=== PATIENT | female | born 1985 | race Two or more races ===

== ENCOUNTER 2021-11-13 13:29 | Emergency (ER) | payer OTHER ==
[~2021-11-13] VITALS: Ht 165.1 cm; Wt 100.0 kg
[2021-11-13 14:22] LABS: Basophils # (auto) 0.1 10 ^3/uL (0-0.2); Basophils % (auto) 0.7 % (0.0-2.0); Eosinophils # (auto) 0 10 ^3/uL (0-0.8); Eosinophils % (auto) 0.4 % (0.0-7.0); Hematocrit 43.6 % (36.0-46.0); Hemoglobin 14.4 g/dL (12.2-16.2); Lymphocytes # (auto) 1.1 10 ^3/uL (0.4-5.4); Mean Corpuscular Hemoglobin 29.6 pg (28.0-32.0); Mean Corpuscular Hgb Conc. 33.1 g/dL (32.0-36.0); Mean Corpuscular Volume 89.3 fL (80.0-100.0); Monocytes # (auto) 0.6 10 ^3/uL (0-1.3); Monocytes % (auto) 8.6 % (0.0-12.0); Neutrophils # (auto) 5.6 10 ^3/uL (1.6-8.6); Neutrophils % (auto) 75.3 % (37.0-80.0); Nucleated Red Blood Cells % 0.1 %; Red Blood Cells 4.88 10^6/uL (4.0-5.20); Red Cell Distribution Width 13.4 % (11.8-14.3); White Blood Cell 7.4 10^3/uL (4.4-10.8)
[2021-11-13 14:44] LABS: Potassium 4.1 mmol/L (3.5-5.1)
[2021-11-13 14:52] LABS: Albumin 3.8 g/dL (3.4-5.0); BUN/Creatinine Ratio 13.3; Bilirubin, Total 0.5 mg/dL (0.2-1.0); Total Protein 8.2 g/dL (6.4-8.2)
[2021-11-13] MEDS ORDERED: ONDANSETRON HCL 4 MG/2 ML VIAL IV ONE (15:30)
[2021-11-13 16:05] VITALS: BP 123/79
[2021-11-13] MEDS ORDERED: METH4PAK PO ×2 (16:21→19:42)
[2021-11-13] MEDS ORDERED: LEVO-28 PO ×2 (16:21→19:42)
[2021-11-13] MEDS ORDERED: KETOROLAC TROMETH 30 MG/ML 1ML VIAL IV ONE (16:30)
== END 2021-11-13 17:26 | disposition home or self-care (01) ==
LOC: ER 13:29
DX: U07.1 COVID-19 (principal); R07.89 Other chest pain; E06.3 Autoimmune thyroiditis
CPT/HCPCS: 36415; 71045; 80053; 84443; 84484; 85025; 85379; 87426; 87804; 93005; 96374; 96375; 99285; J1885; J2405